=== PATIENT | female | born 1990 | race Caucasian/White ===

== ENCOUNTER 2022-03-18 14:54 | Inpatient (IN) | payer SELFPAY ==
[~2022-03-18] VITALS: Ht 157.5 cm; Wt 67.3 kg
[2022-03-18 16:03] LABS: HEMATOCRIT 39.5 % (36.0-47.0); HEMOGLOBIN 13.9 g/dl (12.0-15.5); MEAN CORPUSCULAR HEMOGLOBIN 30.6 pg (27.0-33.0); MEAN CORPUSCULAR HGB CONC 35.2 g/dl (32.0-36.5); PLATELET COUNT, AUTOMATED 355 10^3/uL (150-450); RED BLOOD COUNT 4.54 10^6/uL (4.00-5.40); WHITE BLOOD COUNT 10.1 10^3/uL (4.0-10.0)
[2022-03-18 16:28] LABS: AMPHETAMINES LEVEL URINE NEGATIVE (NEGATIVE); BARBITURATES URINE NEGATIVE (NEGATIVE); BENZODIAZEPINES URINE NEGATIVE (NEGATIVE); CANNABINOIDS URINE NEGATIVE (NEGATIVE); COCAINE METABOLITE URINE NEGATIVE (NEGATIVE); METHADONE URINE NEGATIVE (NEGATIVE); OPIATES URINE NEGATIVE (NEGATIVE); PHENCYCLIDINE URINE NEGATIVE (NEGATIVE)
[2022-03-18 16:32] LABS: HCG, SERUM QUALITATIVE NEGATIVE (NEGATIVE)
[2022-03-18 16:39] LABS: ACETAMINOPHEN LEVEL < 2.0 UG/ML (10.0-30.0); ALBUMIN 4.1 GM/DL (3.2-5.2); ALT/SGPT 19 U/L (12-78); BILIRUBIN,DIRECT 0.1 MG/DL (0.0-0.2); BILIRUBIN,TOTAL 0.5 MG/DL (0.2-1.0); BLOOD UREA NITROGEN 10 MG/DL (7-18); CALCIUM LEVEL 9.4 MG/DL (8.5-10.1); CARBON DIOXIDE LEVEL 23 MEQ/L (21-32); CHLORIDE LEVEL 108 MEQ/L (98-107); ETHYL ALCOHOL (ETHANOL) < 0.003 % (0.000-0.010); GLOMERULAR FILTRATION RATE > 60.0 (>60); GLUCOSE, FASTING 100 MG/DL (70-100); POTASSIUM SERUM 3.6 MEQ/L (3.5-5.1); SALICYLATE LEVEL < 1.7 MG/DL (5.0-30.0); SODIUM LEVEL 141 MEQ/L (136-145); TOTAL PROTEIN 7.6 GM/DL (6.4-8.2)
[2022-03-18 16:41] LABS: RSV AMPLIFICATION NEGATIVE (NEGATIVE)
[2022-03-18] MEDS ORDERED: HOME MED LIST COMPLETE! XX SCH (18:05)
[2022-03-18] MEDS ORDERED: OLANZapine ORAL DISINTEGRATING TAB 5MG PO PRN (19:50)
[2022-03-18] MEDS ORDERED: traZODone 50 MG TAB PO PRN (19:50)
[2022-03-18] MEDS ORDERED: MOM 30ML SUSPENSION UDC PO PRN (19:50)
[2022-03-18] MEDS ORDERED: ACETAMINOPHEN TAB 650MG DOSE (2X325MG) PO PRN (19:50)
[2022-03-18 22:28] VITALS: BP 124/86
[2022-03-19 06:21] VITALS: BP 112/78
[2022-03-19] MEDS: PALIPERIDONE 3 MG ER TAB (INVEGA) PO SCH ×2 (10:28→21:00)
[2022-03-19] MEDS: SERTRALINE HCL 50 MG TAB PO SCH (10:28)
[2022-03-19] MEDS ORDERED: ONDANSETRON 4MG TAB PO PRN (10:50)
[2022-03-19 16:54] VITALS: BP 158/80
[2022-03-19] MEDS: TOPIRAMATE (TopAMAX) 25 MG TAB PO SCH (21:00)
[2022-03-20 06:27] VITALS: BP 131/88
[2022-03-20 07:04] LABS: CHOLESTEROL RISK RATIO 3.175 (<5)
[2022-03-20] MEDS: SERTRALINE HCL 50 MG TAB PO SCH (10:02)
[2022-03-20] MEDS: PALIPERIDONE 3 MG ER TAB (INVEGA) PO SCH ×2 (10:02→21:53)
[2022-03-20] MEDS: TOPIRAMATE (TopAMAX) 25 MG TAB PO SCH (10:26)
[2022-03-20] MEDS ORDERED: OLANZapine ORAL DISINTEGRATING TAB 5MG PO PRN (17:20)
[2022-03-20 18:22] VITALS: BP 156/98
[2022-03-20] MEDS ORDERED: acetaZOLAMIDE 250MG TAB PO SCH (21:00)
[2022-03-21 06:00] VITALS: BP 144/84
[2022-03-21] MEDS: SERTRALINE HCL 50 MG TAB PO SCH (10:28)
[2022-03-21] MEDS: PALIPERIDONE 3 MG ER TAB (INVEGA) PO SCH ×2 (10:28→22:07)
[2022-03-21 18:00] VITALS: BP 163/97
[2022-03-22] MEDS: PALIPERIDONE 3 MG ER TAB (INVEGA) PO SCH ×3 (10:37→21:41)
[2022-03-22] MEDS: SERTRALINE HCL 50 MG TAB PO SCH ×2 (10:37→12:58)
[2022-03-23] MEDS: PALIPERIDONE 3 MG ER TAB (INVEGA) PO SCH ×2 (08:43→21:38)
[2022-03-23] MEDS: SERTRALINE HCL 50 MG TAB PO SCH (08:43)
[2022-03-23] MEDS: amLODIPine 5 MG TAB PO SCH (09:00)
[2022-03-23] MEDS ORDERED: ASPIRIN 81MG ENTERIC TABLET PO ONE (09:45)
[2022-03-23] MEDS: MAALOX 30 ML SUSP *UDC PO PRN (18:56)
[2022-03-24] MEDS: SERTRALINE HCL 50 MG TAB PO SCH (08:04)
[2022-03-24] MEDS: amLODIPine 5 MG TAB PO SCH ×2 (08:05→13:04)
[2022-03-24 13:02] VITALS: BP 101/82
[2022-03-24] MEDS: MAALOX 30 ML SUSP *UDC PO PRN (19:26)
[2022-03-24] MEDS: PALIPERIDONE 3 MG ER TAB (INVEGA) PO SCH (20:45)
[2022-03-25] MEDS: MAALOX 30 ML SUSP *UDC PO PRN (06:45)
[2022-03-25 06:49] VITALS: BP 102/66
[2022-03-25] MEDS: amLODIPine 5 MG TAB PO SCH ×2 (08:13→08:43)
[2022-03-25] MEDS: SERTRALINE HCL 50 MG TAB PO SCH (08:14)
[2022-03-25 08:39] VITALS: BP 100/70
[2022-03-25 16:18] VITALS: BP 134/76
[2022-03-25] MEDS: PALIPERIDONE 3 MG ER TAB (INVEGA) PO SCH (20:36)
[2022-03-26] MEDS: MAALOX 30 ML SUSP *UDC PO PRN (06:38)
[2022-03-26 06:49] VITALS: BP 133/66
[2022-03-26] MEDS: SERTRALINE HCL 50 MG TAB PO SCH (08:52)
[2022-03-26 08:54] VITALS: BP 125/65
[2022-03-26] MEDS: amLODIPine 5 MG TAB PO SCH (08:54)
[2022-03-26] MEDS ORDERED: INVE9TAB PO (09:14)
[2022-03-26] MEDS ORDERED: SERT50TA29 PO (09:14)
[2022-03-26] MEDS ORDERED: AMLO1TAB24 PO (09:14)
== END 2022-03-26 12:42 | disposition home or self-care (01) | DRG 753 ==
LOC: M ED 14:54 → M ED INP 19:47 → M PSY 22:14
PROVIDERS: ADMIT Student in an Organized Health Care Education/Training Program; ATTEND Student in an Organized Health Care Education/Training Program
DX: F31.9 Bipolar disorder, unspecified (principal); G93.2 Benign intracranial hypertension; F20.9 Schizophrenia, unspecified; R45.851 Suicidal ideations; K21.9 Gastro-esophageal reflux disease without esophagitis; R45.850 Homicidal ideations; Z88.6 Allergy status to analgesic agent; F06.8 Other specified mental disorders due to known physiological condition